=== PATIENT | female | born 1985 | race Caucasian/White ===

== ENCOUNTER 2020-12-16 10:09 | Outpatient (CLI) | payer OTHER ==
--- NOTE | 2020-12-17 15:19 | Ultrasound Report ---
LIMITED ULTRASOUND OF LEFT BREAST: 12/16/2020 CLINICAL: Inverted left nipple. Comparison is made to exam dated: 12/16/2020 mammogram - [facility]. Color flow and real-time ultrasound of the left breast retroareolar were performed. Boudreaux scale imag es of the real-time examination were reviewed. There is a 0.6 cm x 0.7 cm x 0.7 cm round cyst with a uniform, minimally thickened wall in the left b reast central to the nipple in the retroareolar region. This round cyst is hypoechoic with low level internal echos. This correlates with mammography findings. Color flow imaging demonstrates that th ere is no vascularity present. IMPRESSION: PROBABLY BENIGN The 0.7 cm cyst in the left breast is consistent with a minimally complicated cyst and is probably be nign. It could potentially cause nipple changes. A follow-up ultrasound in 6 months is recommended. Findings and recommendations were conveyed to the patient at time of exam. This exam was interpreted at Station ID: [id number]. Electronically Signed By: Meche lipscomb/:12/16/2020 11:44:20 Ultrasound BI-RADS: 3 Probably benign BI-RADS CATEGORY: (3) - 3 Ultrasound [id number] 6 month follow-up LATERALITY: (L)
--- NOTE | 2020-12-17 15:19 | Mammography Report ---
BILATERAL DIGITAL DIAGNOSTIC MAMMOGRAM 3D/2D: 12/16/2020 CLINICAL: Left nipple retraction. Baseline exam. No prior exams were available for comparison. The tissue of both breasts is extremely dense, which l owers the sensitivity of mammography. No significant masses, calcifications, or other findings are seen in either breast. Specifically, no finding to explain the patient's left nipple retraction. IMPRESSION: INCOMPLETE: NEEDS ADDITIONAL IMAGING EVALUATION There is no abnormality seen in the left breast to correspond with the left nipple abnormality. Ultr asound is recommended for full evaluation of this area. This was performed immediately following this exam. This exam was interpreted at Station ID: [id number]. NOTE: For mammograms, a report in lay terms will be sent to the patient. Approximately 15% of breast malignancies will not be visualized mammographically. In the management of a palpable breast mass, a negative mammogram must not discourage biopsy of a clinically suspicious lesion. Electronically Signed By: Meche lipscomb/:12/16/2020 11:02:30 ACR BI-RADS Category 0: Incomplete 3340F PARENCHYMAL PATTERN: (VD) - The breast(s) demonstrate(s) extremely dense parenchyma, limiting the sen sitivity of mammography. BI-RADS CATEGORY: (0) - 0 Ultrasound [id number] Immediate follow-up LATERALITY: (B)
== END 2020-12-16 10:10 | disposition home or self-care (01) ==
LOC: DI 10:09
PROVIDERS: ATTEND Physician Assistant
DX: N64.59 Other signs and symptoms in breast (principal); N60.02 Solitary cyst of left breast

== ENCOUNTER 2021-02-17 11:13 | Outpatient (CLI) | payer OTHER | END 2021-02-17 11:14 | disposition home or self-care (01) | LOC: LAB 11:13 | PROVIDERS: ATTEND Obstetrics & Gynecology | DX: Z31.69 Encounter for other general counseling and advice on procreation (principal) | CPT/HCPCS: 36415; 84144 ==